=== PATIENT | male | born 1960 | race Hispanic/Latino ===

== ENCOUNTER 2016-08-19 14:27 | Outpatient (CLI) | payer MEDICAID ==
--- NOTE | 2016-08-19 15:48 | Magnetic Resonance Report ---
MRI scan of brain without contrast: History: Headache. Technique: Multiplanar, multisequence images were obtained without contrast injection. Findings: Ventricles are normal in size and midline in location. No evidence of acute ischemia, hemorrhage or mass. No extra axial fluid collection. Normal brainstem and cerebellum. Impression: Essentially negative brain. The
== END 2016-08-19 14:28 | disposition home or self-care (01) ==
LOC: MRI 14:27
PROVIDERS: ATTEND Psychiatry & Neurology Neurology
DX: R51 Headache (principal)
CPT/HCPCS: 70551